=== PATIENT | female | born 1995 | race Caucasian/White ===

== ENCOUNTER 2017-11-22 07:38 | Emergency (ER) | payer SELFPAY ==
[~2017-11-22] VITALS: Ht 167.6 cm; Wt 86.4 kg
[2017-11-22 07:50] VITALS: Ht 167.6 cm; Wt 86.4 kg
[2017-11-22] MEDS ORDERED: CELEXA10 MG PO (07:53)
[2017-11-22] MEDS ORDERED: ADVIL200 MG PO (07:53)
[2017-11-22] MEDS ORDERED: KEFLEX500 MG PO (08:13)
[2017-11-22 08:26] VITALS: BP 116/66
== END 2017-11-22 08:22 | disposition home or self-care (01) ==
LOC: D.ER 07:38
DX: K02.9 Dental caries, unspecified (principal); F17.200 Nicotine dependence, unspecified, uncomplicated